=== PATIENT | male | born 1940 | race Caucasian/White ===

== ENCOUNTER 2017-03-07 08:21 | Outpatient (CLI) | payer OTHER ==
[~2017-03-07 08:21] MED LIST: AMIODARONE HCL200 MG PO; CLONAZEPAM0.5 MG PO; DOXYCYCLINE HY100 M2; FUROSEMIDE10 MG/1 M1 PO; LIPITOR20 MG; LIPITOR40 MG PO; LOPRESSOR25 MG; METOPROLOL TART50 MG PO; XARELTO20 MG PO
== END 2017-03-07 12:02 | disposition home or self-care (01) ==
LOC: NUCLEAR 08:21
DX: I48.0 Paroxysmal atrial fibrillation (principal)

== ENCOUNTER → 2017-04-08 06:26 | Outpatient (CLI) | payer OTHER | END | disposition home or self-care (01) | LOC: LAB 06:26 | DX: I11.9 Hypertensive heart disease without heart failure (principal); E78.2 Mixed hyperlipidemia ==

== ENCOUNTER 2017-05-26 07:21 | Outpatient (CLI) | payer OTHER | END 2017-05-26 07:33 | disposition home or self-care (01) | LOC: LAB 07:21 | DX: E11.65 Type 2 diabetes mellitus with hyperglycemia (principal); E03.8 Other specified hypothyroidism; E78.2 Mixed hyperlipidemia; N40.1 Benign prostatic hyperplasia with lower urinary tract symptoms ==

== ENCOUNTER 2017-07-01 06:33 | Outpatient (CLI) | payer OTHER | END 2017-07-01 06:46 | disposition home or self-care (01) | LOC: LAB 06:33 | DX: E03.8 Other specified hypothyroidism (principal); E11.9 Type 2 diabetes mellitus without complications; I11.9 Hypertensive heart disease without heart failure; I48.1 Persistent atrial fibrillation ==

== ENCOUNTER 2017-07-01 08:08 | Outpatient (CLI) | payer OTHER | END 2017-07-01 08:18 | disposition home or self-care (01) | LOC: RAD 08:08 | DX: E03.8 Other specified hypothyroidism (principal); E04.1 Nontoxic single thyroid nodule ==

== ENCOUNTER 2017-07-31 10:03 | Outpatient (CLI) | payer OTHER | END 2017-07-31 10:08 | disposition home or self-care (01) | LOC: RAD 10:03 | DX: J45.998 Other asthma (principal) ==

== ENCOUNTER → 2017-08-01 06:57 | Outpatient (CLI) | payer OTHER | END | disposition home or self-care (01) | LOC: LAB 06:57 | DX: E11.65 Type 2 diabetes mellitus with hyperglycemia (principal); D68.8 Other specified coagulation defects; D64.89 Other specified anemias; I50.41 Acute combined systolic (congestive) and diastolic (congestive) heart failure ==

== ENCOUNTER 2017-08-20 09:07 | Outpatient (CLI) | payer OTHER | END 2017-08-20 15:58 | disposition home or self-care (01) | LOC: TOM 09:07 | DX: J84.10 Pulmonary fibrosis, unspecified (principal) | CPT/HCPCS: 71260; Q9965 ==

== ENCOUNTER → 2017-09-22 07:30 | Outpatient (CLI) | payer OTHER | END | disposition home or self-care (01) | LOC: RAD 07:30 | DX: E11.65 Type 2 diabetes mellitus with hyperglycemia (principal); E03.8 Other specified hypothyroidism; I50.41 Acute combined systolic (congestive) and diastolic (congestive) heart failure; J45.998 Other asthma ==

== ENCOUNTER → 2017-10-05 | Emergency (ER) | payer OTHER | END | disposition left against medical advice (07) | LOC: ER 12:36 | DX: Z53.20 Procedure and treatment not carried out because of patient's decision for unspecified reasons (principal) ==

== ENCOUNTER 2017-11-10 07:40 | Outpatient (CLI) | payer OTHER | END 2017-11-10 07:51 | disposition home or self-care (01) | LOC: LAB 07:40 | DX: I50.22 Chronic systolic (congestive) heart failure (principal); I10 Essential (primary) hypertension; N18.2 Chronic kidney disease, stage 2 (mild) ==

== ENCOUNTER 2017-12-19 09:39 | Outpatient (CLI) | payer OTHER | END 2017-12-19 09:43 | disposition home or self-care (01) | LOC: LAB 09:39 | DX: D64.89 Other specified anemias (principal); N39.0 Urinary tract infection, site not specified; R10.84 Generalized abdominal pain; E03.8 Other specified hypothyroidism; E78.4 Other hyperlipidemia; E11.9 Type 2 diabetes mellitus without complications; R73.09 Other abnormal glucose; I50.22 Chronic systolic (congestive) heart failure; Z13.6 Encounter for screening for cardiovascular disorders ==

== ENCOUNTER 2018-01-08 13:40 | Outpatient (CLI) | payer OTHER | END 2018-01-08 13:56 | disposition home or self-care (01) | LOC: NUCLEAR 13:40 | DX: I42.8 Other cardiomyopathies (principal) | CPT/HCPCS: 78472; 78496; A9560 ==

== ENCOUNTER 2018-01-22 04:54 | Inpatient (IN) | payer OTHER ==
[~2018-01-22] VITALS: Ht 170.2 cm; Wt 90.7 kg
== END 2018-01-25 16:31 | disposition home or self-care (01) | DRG 308 ==
LOC: ER 04:54 → ICU-2 18:38 → ICU 18:38 → MEDJ 01-24 18:28 → MEDI 01-24 18:28 → MEDJ 01-24 18:28
PROC: 4A033R1 Measurement of Arterial Saturation, Peripheral, Percutaneous Approach (ICD-10-PCS; principal; 2018-01-22)
PROC: 4A12X4Z Monitoring of Cardiac Electrical Activity, External Approach (ICD-10-PCS; 2018-01-24)
DX: I48.0 Paroxysmal atrial fibrillation (principal); I50.33 Acute on chronic diastolic (congestive) heart failure; J91.8 Pleural effusion in other conditions classified elsewhere; I13.0 Hypertensive heart and chronic kidney disease with heart failure and stage 1 through stage 4 chronic kidney disease, or unspecified chronic kidney disease; I48.3 Typical atrial flutter; N18.3 Chronic kidney disease, stage 3 (moderate); E78.49 Other hyperlipidemia

== ENCOUNTER 2018-06-17 18:28 | Emergency (ER) | payer OTHER ==
[~2018-06-17] VITALS: Ht 170.2 cm; Wt 90.7 kg
== END 2018-06-17 21:52 | disposition home or self-care (01) ==
LOC: ER 18:28
DX: J11.1 Influenza due to unidentified influenza virus with other respiratory manifestations (principal)

== ENCOUNTER → 2018-08-28 06:28 | Outpatient (CLI) | payer OTHER | END | disposition home or self-care (01) | LOC: LAB 06:28 | DX: I11.9 Hypertensive heart disease without heart failure (principal); E78.2 Mixed hyperlipidemia ==

== ENCOUNTER 2018-09-11 06:58 | Outpatient (CLI) | payer OTHER | END 2018-09-11 07:10 | disposition home or self-care (01) | LOC: LAB 06:58 | DX: J45.998 Other asthma (principal); I50.21 Acute systolic (congestive) heart failure; E03.8 Other specified hypothyroidism; Z45.02 Encounter for adjustment and management of automatic implantable cardiac defibrillator; Z95.810 Presence of automatic (implantable) cardiac defibrillator ==

== ENCOUNTER 2018-09-23 06:18 | Outpatient (CLI) | payer OTHER | END 2018-09-23 06:24 | disposition home or self-care (01) | LOC: LAB 06:18 | DX: E11.21 Type 2 diabetes mellitus with diabetic nephropathy (principal); E11.8 Type 2 diabetes mellitus with unspecified complications ==

== ENCOUNTER 2018-12-22 06:20 | Outpatient (CLI) | payer OTHER | END 2018-12-22 15:09 | disposition home or self-care (01) | LOC: LAB 06:20 | DX: N39.0 Urinary tract infection, site not specified (principal); E11.65 Type 2 diabetes mellitus with hyperglycemia; D64.89 Other specified anemias; E78.2 Mixed hyperlipidemia; N40.1 Benign prostatic hyperplasia with lower urinary tract symptoms ==

== ENCOUNTER 2018-12-23 08:04 | Outpatient (CLI) | payer OTHER | END 2018-12-23 08:07 | disposition home or self-care (01) | LOC: RX STUDY 08:04 | DX: R13.19 Other dysphagia (principal); K00-K95 Diseases of the digestive system ==

== ENCOUNTER 2019-02-23 11:22 | Inpatient (IN) | payer OTHER ==
[~2019-02-23] VITALS: Ht 170.2 cm; Wt 90.7 kg
--- NOTE | 2019-02-23 12:00 | NUR ---
PACIENTE ALERTA Y ORIENTADO EN REN CLAU ESFERAS, REFIERE DIFICULTAD RESPIRATORIA DESDE HACE APROX DOS SOLOMON. PACIENTE MICKEY REFERIDO MEDICO DE FRANCISCO DE DR Sage FAM POR R/O CHF. PACIENTE NO SE OBSERVA CON DIFICULTAD PARA RESPIRAR, REFIERE FATIGA AL CAMINAR, EXTREMIDADES INFERIORES LIBRES DE EDEMA.
--- NOTE | 2019-02-23 12:32 | NUR ---
PT EVALUADO POR DR GRAY QUIEN [place]. SE ORIENTA A PT SOBRE EL MISMO, REFIERE ENTENDER. SE LE COLECTAN MUESTRAS, SE CANALIZA Y SE LE ADMINISTRAN MEDICAMENTOS OLMAN PRESCRITOS BAJO MEDIDAS ASEPTICAS PT TOLERA. SE MANTIENE CONECTADO A MONITOR CARDIACO Y OXIMETRIA DE PULSO CONTINUA EN CAMA # 16 CPU/.
--- NOTE | 2019-02-23 15:37 | NUR ---
SE RECIBE PTE MASCULINO DE 78 YRS ALERTA CONCIENTE Y TRANQUILO EN LA UNIDADA DE CHEST PAIN. PTE CONCNETADO A MONITOR CARDIACO Y OXIMENTRIA,. SE LE BLADIMIR S/V LA CUAL SE DOCUMENTA. SE ,MANTIENE MARCELINA DE DOLOR AL MOMENTO. SE LE OBSERVA H/L EN MANO DERECHA CON ANGIO #20 MARCELINA DE EDEMA . SE MANTIENE EN ESPERA DE MEDICO ZEKE SARWAT Y SE OBSERVA POR CAMBIOS.
--- NOTE | 2019-02-23 22:17 | NUR ---
SE LE COMIEZA MEDICAMENTOS OLMAN ORENADOS POR EL ZEKE PARKER Y SE COMIENZA EN TRIDIL 50/250 A 3 ML HR .SE OBSERVA POR CAMBIOS .
--- NOTE | 2019-02-23 23:21 | NUR ---
TAILER OUT RECIBE PTE ALERTA Y ORIENTADO X3 EL CUAL SE OBSERVA EN ERNIE CON BARANDAS ELEVADAS AL MOMENTO. PTE SE OBSERVA CONECTADO A MONITOR CARDIACO CON OXIMETRAIDE PULSO CONTINUA. PTE CON DRPI DE TRIDIL 50M/250ML BAJANDO A 2ML/HR. PTE SE OBSERVA CON CANALIZACION PATENTE MARCELINA DE EDEMA Y ENROJECIMIENTO. SE ORIENTA A PTE SOBRE TX MEDICO ARLINE REFIERE ENTENDER. SE MIDEN S/V APTE Y SE DOCUMENTAN EN SISTEMA. PTE CON CN A 2 LTS COLOCADA. PTE CON URINAL AL ALCANZE. PTE CON MUESTRAS DE LAB PENDIENJTE EN LA MANANA Y EN ESPERA DE CONSULTA CON MEDICINA INTERNA. PTE SE CONTINUA MONITORIANDO POR CAMBIOS.
--- NOTE | 2019-02-24 08:07 | NUR ---
SE RECIBE PTE DEL TURNO ANTERIOR EN ERNIE CON BARANDAS ELEVADAS CON IVFS PATENTE, MARCELINA DE EDEMA Y ERITEMA. ALERTA, ORIENTADO POR CLAU. REFIERE SENTIRSE MEJOR. CONECTADO A MONITOR CARDIACO. SE MANTIENE EN OBSERVACION Y PENDIENTE A CONSULTA CON .
--- NOTE | 2019-02-24 10:54 | NUR ---
SE LE DA ADAM Y SE MIDE S/V SE REPORTAN . SE MANTIENE EN OBSERVACION.
--- NOTE | 2019-02-24 13:07 | NUR ---
PTE INGIERE REN ALIMENTOS LA CUAL TOLERA. NO PRESENTA DIFICULTAD AL RESPIRAR SATURANDO 99%. SE MANTIENE EN OBSERVACION Y PENDIENTE A CONSULTA CON
--- NOTE | 2019-02-24 15:12 | NUR ---
SE RECIBE PACIENTE EN AREA DE CHEST PAIN ERNIE # 16. SE OFRECE ADAM PARA EVALUAR CONDICION Y ORIENTAR DE CONTINUIDAD DE TRATAMIENTO EN TURNO 06/01. SE OBSERVA ALERTA,ACTIVO Y ORIENTADO.CONECTADO A MONITOR CARDIACO CON SATUROME- TRO Y CANULA NASAL A 3LITROS.H/L PATENTE EN MANO DERECHA ANGIO #18 AREA MARCELINA DE EDEMA Y/O ERITEMA.SE MIDEN Y DOCUMENTAN S/V.BARANDAS ELEVADAS POR STRAUSS SEGURI- DAD.SE MONITOREA EN TURNO POR CAMBIOS SIGNIFICATIVOS.
== END 2019-02-26 14:46 | disposition home or self-care (01) | DRG 291 ==
LOC: ER 11:22 → SURH 02-24 18:42 → SEC-K 02-24 18:42 → SURH 02-24 20:20
PROVIDERS: ADMIT Specialist
PROC: B246ZZZ Ultrasonography of Right and Left Heart (ICD-10-PCS; principal; 2019-02-24)
PROC: 3E0F7GC Introduction of Other Therapeutic Substance into Respiratory Tract, Via Natural or Artificial Opening (ICD-10-PCS; 2019-02-24)
PROC: 4A12X4Z Monitoring of Cardiac Electrical Activity, External Approach (ICD-10-PCS; 2019-02-25)
DX: I13.0 Hypertensive heart and chronic kidney disease with heart failure and stage 1 through stage 4 chronic kidney disease, or unspecified chronic kidney disease (principal); I50.43 Acute on chronic combined systolic (congestive) and diastolic (congestive) heart failure; D68.318 Other hemorrhagic disorder due to intrinsic circulating anticoagulants, antibodies, or inhibitors; N18.3 Chronic kidney disease, stage 3 (moderate); I08.0 Rheumatic disorders of both mitral and aortic valves; I48.0 Paroxysmal atrial fibrillation; Z79.01 Long term (current) use of anticoagulants; Z95.810 Presence of automatic (implantable) cardiac defibrillator

== ENCOUNTER 2019-06-08 07:42 | Outpatient (CLI) | payer OTHER | END 2019-06-08 15:00 | disposition home or self-care (01) | LOC: LAB 07:42 | DX: E11.65 Type 2 diabetes mellitus with hyperglycemia (principal); D64.89 Other specified anemias; N39.0 Urinary tract infection, site not specified; Z12.11 Encounter for screening for malignant neoplasm of colon; E78.2 Mixed hyperlipidemia; E03.8 Other specified hypothyroidism ==

== ENCOUNTER 2019-10-28 08:07 | Outpatient (CLI) | payer OTHER | END 2019-10-28 08:12 | disposition home or self-care (01) | LOC: LAB 08:07 | PROVIDERS: ATTEND Internal Medicine | DX: I48.20 Chronic atrial fibrillation, unspecified (principal) ==

== ENCOUNTER 2019-11-26 08:41 | Outpatient (CLI) | payer OTHER | END 2019-11-26 08:47 | disposition home or self-care (01) | LOC: LAB 08:41 | DX: E11.21 Type 2 diabetes mellitus with diabetic nephropathy (principal) ==

== ENCOUNTER 2020-05-24 05:36 | Emergency (ER) | payer OTHER ==
[~2020-05-24] VITALS: Ht 170.2 cm; Wt 90.7 kg
[2020-05-24] MEDS ORDERED: ANUSOL-HC30 G2 TOP (10:31)
== END 2020-05-24 10:44 | disposition home or self-care (01) ==
LOC: ER 05:36
DX: K64.4 Residual hemorrhoidal skin tags (principal)

== ENCOUNTER 2020-06-29 13:33 | Emergency (ER) | payer OTHER ==
[~2020-06-29] VITALS: Ht 170.2 cm; Wt 94.3 kg
[~2020-06-29 13:33] MED LIST changes: +ANUSOL-HC30 G2 TOP
[2020-06-29] MEDS ORDERED: COZAAR25 MG (15:33)
[2020-06-29] MEDS ORDERED: XARELTO20 MG (15:33)
[2020-06-29] MEDS ORDERED: LASIX20 MG (15:33)
[2020-06-29] MEDS ORDERED: LANOXIN125 MCG (15:33)
[2020-06-29] MEDS ORDERED: PROCTOZONE-HC30 GM (15:34)
== END 2020-06-30 14:16 | disposition home or self-care (01) ==
LOC: ER 13:33
DX: I13.0 Hypertensive heart and chronic kidney disease with heart failure and stage 1 through stage 4 chronic kidney disease, or unspecified chronic kidney disease (principal); I50.9 Heart failure, unspecified; N18.30 Chronic kidney disease, stage 3 unspecified; I42.0 Dilated cardiomyopathy; Z03.818 Encounter for observation for suspected exposure to other biological agents ruled out; R06.02 Shortness of breath; Z95.810 Presence of automatic (implantable) cardiac defibrillator

== ENCOUNTER 2020-07-03 06:52 | Outpatient (CLI) | payer OTHER ==
[~2020-07-03 06:52] MED LIST changes: +COZAAR25 MG; +LANOXIN125 MCG; +LASIX20 MG; +PROCTOZONE-HC30 GM; +XARELTO20 MG
== END 2020-07-03 07:22 | disposition home or self-care (01) ==
LOC: LAB 06:52
DX: I50.89 Other heart failure (principal); N18.30 Chronic kidney disease, stage 3 unspecified

== ENCOUNTER 2020-07-21 08:04 | Inpatient (IN) | payer OTHER ==
[~2020-07-21] VITALS: Ht 170.2 cm; Wt 90.7 kg
[2020-07-21] MEDS ORDERED: TOPROL XL25 M1 PO (08:18)
[2020-07-21] MEDS ORDERED: LOPRESSOR25 MG (16:47)
== END 2020-07-25 16:25 | disposition home or self-care (01) | DRG 292 ==
LOC: ER 08:04 → MEDJ 14:51 → SEC-K 14:51 → MEDJ 16:47
PROVIDERS: ADMIT Specialist; ATTEND Specialist
PROC: 3E0F7SF Introduction of Other Gas into Respiratory Tract, Via Natural or Artificial Opening (ICD-10-PCS; 2020-07-21)
PROC: 4A12X4Z Monitoring of Cardiac Electrical Activity, External Approach (ICD-10-PCS; 2020-07-21)
PROC: B24BZZZ Ultrasonography of Heart with Aorta (ICD-10-PCS; principal; 2020-07-22)
DX: I50.23 Acute on chronic systolic (congestive) heart failure (principal); I48.20 Chronic atrial fibrillation, unspecified; I42.0 Dilated cardiomyopathy; I10 Essential (primary) hypertension; R06.02 Shortness of breath; E78.49 Other hyperlipidemia; Z20.822 Contact with and (suspected) exposure to COVID-19; Z95.810 Presence of automatic (implantable) cardiac defibrillator

== ENCOUNTER → 2020-07-31 06:18 | Outpatient (CLI) | payer OTHER ==
[~2020-07-31 06:18] MED LIST changes: +ATORVASTATIN CA10 MG; +ATORVASTATIN CA10 MG PO; +DIGOXIN125 MCG; +FAMOTIDINE20 MG PO; +FUROSEMIDE40 MG PO; +HYDRALAZINE HCL10 MG PO; +ISOSORBIDE DINIT5 MG; +LOSARTAN POTASS25 MG; +METOPROLOL SUC100 MG; +TOPROL XL25 M1 PO
== END | disposition home or self-care (01) ==
LOC: LAB 06:18
PROVIDERS: ATTEND Specialist
DX: E11.65 Type 2 diabetes mellitus with hyperglycemia (principal); I50.9 Heart failure, unspecified

== ENCOUNTER 2020-08-07 07:48 | Emergency (ER) | payer OTHER ==
[~2020-08-07] VITALS: Ht 170.2 cm; Wt 90.7 kg
[~2020-08-07 07:48] MED LIST changes: -ATORVASTATIN CA10 MG; -ATORVASTATIN CA10 MG PO; -DIGOXIN125 MCG; -FAMOTIDINE20 MG PO; -FUROSEMIDE40 MG PO; -HYDRALAZINE HCL10 MG PO; -ISOSORBIDE DINIT5 MG; -LOSARTAN POTASS25 MG; -METOPROLOL SUC100 MG
[2020-08-07] MEDS ORDERED: ATORVASTATIN CA10 MG PO (08:00)
== END 2020-08-07 19:45 | disposition home or self-care (01) ==
LOC: ER 07:48
DX: I48.91 Unspecified atrial fibrillation (principal); R00.2 Palpitations; R06.02 Shortness of breath

== ENCOUNTER 2020-08-12 18:03 | Inpatient (IN) | payer OTHER ==
[~2020-08-12] VITALS: Ht 170.2 cm; Wt 90.7 kg
[~2020-08-12 18:03] MED LIST changes: +ATORVASTATIN CA10 MG PO
--- NOTE | 2020-08-12 18:25 | NUR ---
PACIENTE ALERTA Y ORIENTADO POR CLAU. REFIERE INFLAMACION EN PIERNAS Y DIF RESPIRATORIA HACEN MAS DE 2 SEMANAS. SE MIDEN S/V LOS MISMOS ESTAN EN PARAMETROS NORMALES. SATURANDO 96%, REFIERE LA DIF PARA RESPIRAR ES AL ACOSTARSE.
--- NOTE | 2020-08-12 19:28 | NUR ---
PTE EVALUADO POR EL DR GABRIELA QUIEN [place]. MS A VALDES ORIENTA SOBRE EL TX [place], LO CUAL REFIERE ENTENDER, REALIZA PRUEBAS DE LABORATORIO Y ADMINISTRA MEDICAMENTO OLMAN ORDEN MEDICA Y SIGUIENDO MEDIDAS ASEPTICAS.
--- NOTE | 2020-08-12 19:29 | NUR ---
ALCIDES X NOTIFICADOS A PERSONAL DE TURNO.
--- NOTE | 2020-08-12 21:52 | NUR ---
PTE CON ORDEN PARA SER UBICADO EN AREA DE CRITICO. SE ORIENTA A PTE SOBRE UNIDAD Y NORMAS, LO CUAL REFIERE ENTENDER. SE TRANSFIERE PTE AL AREA DE CRITICO UBICADO EN CAMA #2, CONECTADO A MONITOR CARDIACO Y OXIMETRIA DE PULSO. SE ADMINISTRA MEDICAMENTO OLMAN ORDEN MEDICA AL MOMENTO CON DRIP DE TRIDIL 50MG/250ML @3ML/HR. SE ENTREGA PTE A MS Briana SPARKS.
--- NOTE | 2020-08-12 22:11 | NUR ---
SE RECIBE PACIENTE EN AREA DE ICU #2 POR TAMIE BUTT, ESTA CONECTA A MONITOR CARDIACO CON SATUROMETRO.PACIENTE ALERTA Y ORIENTADO POR CLAU.MARCELINA DE DUDAS. IVF'S PATENTE A TRAVEZ DE ANGIO #20 BRAZO DERECHO,AREA MARCELINA DE EDEMA Y/O ERITEMA BAJANDO TRIDIL A 3MLS/HR.ORINANDO DE FORMA ESPONTANEA.BARANDAS ELEVADAS POR STRAUSS SEGURIDAD. SE MONITOREA POR CAMBIOS SIGNIFICATIVOS.
--- NOTE | 2020-08-12 23:59 | NUR ---
SE RECIBE PACIENTE MASCULINO ALERTA Y ORIENTADO EN LAS CLAU ESFERAS. SE ONSERVA PACIENTE CONECTADO A MONITOR CARDIACO, OXIMETRIA DE PULSO, CANULA NASAL, TRIDIL 50MG/250ML AT 3ML/HR. AL MOMENTO PACIENTE PENDIENTE A CONSULTA CON DR CODIE ROSE. SE MIDEN SIGNOS VITALES DE PACIENTE Y SE MANTIENE EN OBSERVACION.
--- NOTE | 2020-08-13 07:48 | NUR ---
SE RECIBE PACIENTE DEL TURNO ANTERIOR. PACIENTE ALERTA Y ORIENTADO EN LAS CLAU ESFERAS. SE ENCUENTRA EN POSICION SEMISENTADO Y BARANDAS ELEVADAS. PACIENTE CONECTADO A MONITOR CARDIACO Y A OXIMETRIA. PACIENTE CON CANULA NASAL A 3 LT Y SATURANDO 98% AL MOMENTO. SE OBSERVAN RITMOS CARDIACOS IRREGULARES EN EL MONITOR. PACIENTE CON TERAPIA INTRAVENOSA DE TRIDIL BAJANDO A 1 ML/HR AL MOMENTO. SE ESPERA POR CONSULTA DE MEDICO PARA CONTINUIDAD DE TRATAMIENTO AL PACIENTE. SE MANTIENE A PACIENTE BAJO OBSERVACION POR CAMBIOS.
[2020-08-14] MEDS ORDERED: LOPRESSOR25 MG (08:01)
[2020-08-14] MEDS ORDERED: ISOSORBIDE DINIT5 MG (08:01)
[2020-08-14] MEDS ORDERED: METOPROLOL SUC100 MG (08:01)
[2020-08-14] MEDS ORDERED: DIGOXIN125 MCG (08:01)
[2020-08-14] MEDS ORDERED: LOSARTAN POTASS25 MG (08:01)
== END 2020-08-17 15:17 | disposition home or self-care (01) | DRG 292 ==
LOC: ER 18:03 → MEDI 08-13 10:03 → SEC-K 08-13 10:03 → MEDI 08-13 13:16
PROVIDERS: ADMIT Specialist; ATTEND Specialist
PROC: 4A12X4Z Monitoring of Cardiac Electrical Activity, External Approach (ICD-10-PCS; principal; 2020-08-12)
PROC: 3E0F7SF Introduction of Other Gas into Respiratory Tract, Via Natural or Artificial Opening (ICD-10-PCS; 2020-08-13)
DX: I50.23 Acute on chronic systolic (congestive) heart failure (principal); I42.0 Dilated cardiomyopathy; I48.20 Chronic atrial fibrillation, unspecified; I10 Essential (primary) hypertension; E78.49 Other hyperlipidemia; Z20.822 Contact with and (suspected) exposure to COVID-19; Z95.810 Presence of automatic (implantable) cardiac defibrillator

== ENCOUNTER 2020-08-24 22:34 | Inpatient (IN) | payer OTHER ==
[~2020-08-24] VITALS: Ht 170.2 cm; Wt 90.7 kg
[~2020-08-24 22:34] MED LIST changes: +DIGOXIN125 MCG; +ISOSORBIDE DINIT5 MG; +LOSARTAN POTASS25 MG; +METOPROLOL SUC100 MG
[2020-08-24] MEDS ORDERED: FUROSEMIDE40 MG PO (22:54)
[2020-08-24] MEDS ORDERED: FAMOTIDINE20 MG PO (22:54)
[2020-08-24] MEDS ORDERED: HYDRALAZINE HCL10 MG PO (22:55)
[2020-08-31] MEDS ORDERED: ATORVASTATIN CA10 MG (16:28)
[2020-08-31] MEDS ORDERED: ISOSORBIDE DINIT5 MG (16:28)
[2020-08-31] MEDS ORDERED: LOPRESSOR25 MG (16:29)
== END 2020-09-01 14:35 | disposition home or self-care (01) | DRG 292 ==
LOC: ER 22:34 → SEC-K 08-25 16:24 → MEDI 08-25 16:24 → SEC-K 08-25 17:27 → MEDI 08-25 17:56 → MEDJ 08-29 17:24
PROVIDERS: ADMIT Specialist; ATTEND Specialist
PROC: 4A12X4Z Monitoring of Cardiac Electrical Activity, External Approach (ICD-10-PCS; 2020-08-25)
PROC: B24BZZZ Ultrasonography of Heart with Aorta (ICD-10-PCS; 2020-08-25)
PROC: B24BZZ4 Ultrasonography of Heart with Aorta, Transesophageal (ICD-10-PCS; principal; 2020-08-31)
DX: I13.0 Hypertensive heart and chronic kidney disease with heart failure and stage 1 through stage 4 chronic kidney disease, or unspecified chronic kidney disease (principal); I48.20 Chronic atrial fibrillation, unspecified; I34.0 Nonrheumatic mitral (valve) insufficiency; I42.0 Dilated cardiomyopathy; Z79.01 Long term (current) use of anticoagulants; D64.9 Anemia, unspecified; I25.5 Ischemic cardiomyopathy; Z95.810 Presence of automatic (implantable) cardiac defibrillator; I11.0 Hypertensive heart disease with heart failure; I50.9 Heart failure, unspecified; N18.31 Chronic kidney disease, stage 3a; Z91.14 Patient's other noncompliance with medication regimen

== ENCOUNTER 2020-11-03 13:52 | Inpatient (IN) | payer OTHER ==
[~2020-11-03] VITALS: Ht 170.2 cm; Wt 90.7 kg
[~2020-11-03 13:52] MED LIST changes: +ATORVASTATIN CA10 MG; +FAMOTIDINE20 MG PO; +FUROSEMIDE40 MG PO; +HYDRALAZINE HCL10 MG PO
[2020-11-08] MEDS ORDERED: CANDESARTAN CILE8 M1 (11:36)
[2020-11-08] MEDS ORDERED: ISOSORBIDE MONO30 M2 (11:36)
[2020-11-08] MEDS ORDERED: RESTORIL15 MG (11:36)
== END 2020-11-08 13:52 | disposition home or self-care (01) | DRG 728 ==
LOC: ER 13:52 → MEDI 11-04 15:42
PROVIDERS: ADMIT Specialist; ATTEND Specialist
PROC: BW21ZZZ Computerized Tomography (CT Scan) of Abdomen and Pelvis (ICD-10-PCS; principal; 2020-11-04)
PROC: BV44ZZZ Ultrasonography of Scrotum (ICD-10-PCS; 2020-11-04)
DX: N45.1 Epididymitis (principal); I42.0 Dilated cardiomyopathy; I48.20 Chronic atrial fibrillation, unspecified; N43.2 Other hydrocele; Z20.822 Contact with and (suspected) exposure to COVID-19; Z95.810 Presence of automatic (implantable) cardiac defibrillator; N50.3 Cyst of epididymis; I12.9 Hypertensive chronic kidney disease with stage 1 through stage 4 chronic kidney disease, or unspecified chronic kidney disease; N18.9 Chronic kidney disease, unspecified

== ENCOUNTER 2020-11-17 06:51 | Outpatient (CLI) | payer OTHER ==
[~2020-11-17 06:51] MED LIST changes: +CANDESARTAN CILE8 M1; +ISOSORBIDE MONO30 M2; +RESTORIL15 MG
== END 2020-11-17 06:53 | disposition home or self-care (01) ==
LOC: LAB 06:51
PROVIDERS: ATTEND Specialist
DX: D64.89 Other specified anemias (principal); I50.89 Other heart failure; E11.65 Type 2 diabetes mellitus with hyperglycemia

== ENCOUNTER 2021-01-18 09:37 | Outpatient (CLI) | payer OTHER | END 2021-01-18 09:45 | disposition home or self-care (01) | LOC: TOM 09:37 | PROVIDERS: ATTEND Psychiatry & Neurology Neurology | DX: M54.2 Cervicalgia (principal); G44.219 Episodic tension-type headache, not intractable ==

== ENCOUNTER 2021-03-23 23:36 | Emergency (ER) | payer OTHER ==
[~2021-03-23] VITALS: Ht 170.2 cm; Wt 81.6 kg
[2021-03-24] MEDS ORDERED: VITAMIN C WIT1000 MG PO (03:55)
[2021-03-24] MEDS ORDERED: ACETAMINOPHEN650 M2 PO (03:55)
[2021-03-24] MEDS ORDERED: MUCINEX DM ER1 EACH PO (03:55)
[2021-03-24] MEDS ORDERED: MELATONIN5 M1 PO (03:55)
== END 2021-03-24 04:05 | disposition home or self-care (01) ==
LOC: ER 23:36
DX: U07.1 COVID-19 (principal); I50.9 Heart failure, unspecified; R53.1 Weakness; R53.83 Other fatigue; N18.9 Chronic kidney disease, unspecified

== ENCOUNTER 2021-04-07 14:37 | Emergency (ER) | payer OTHER ==
[~2021-04-07] VITALS: Ht 170.2 cm; Wt 81.6 kg
[~2021-04-07 14:37] MED LIST changes: +ACETAMINOPHEN650 M2 PO; +MELATONIN5 M1 PO; +MUCINEX DM ER1 EACH PO; +VITAMIN C WIT1000 MG PO
== END 2021-04-07 19:44 | disposition home or self-care (01) ==
LOC: ER 14:37
DX: K64.5 Perianal venous thrombosis (principal)

== ENCOUNTER 2021-04-09 16:09 | Emergency (ER) | payer OTHER ==
[~2021-04-09] VITALS: Ht 170.2 cm; Wt 63.5 kg
[2021-04-09] MEDS ORDERED: TAMS0.4C PO (20:20)
[2021-04-09] MEDS ORDERED: CEFDINIR300 MG PO (20:20)
== END 2021-04-09 21:12 | disposition home or self-care (01) ==
LOC: ER 16:09
DX: N39.0 Urinary tract infection, site not specified (principal); B96.1 Klebsiella pneumoniae [K. pneumoniae] as the cause of diseases classified elsewhere; T83.018A Breakdown (mechanical) of other urinary catheter, initial encounter

== ENCOUNTER 2021-04-20 00:42 | Emergency (ER) | payer OTHER ==
[~2021-04-20] VITALS: Ht 170.2 cm; Wt 81.6 kg
[~2021-04-20 00:42] MED LIST changes: +CEFDINIR300 MG PO; +TAMS0.4C PO
== END 2021-04-20 13:10 | disposition home or self-care (01) ==
LOC: ER 00:42
DX: I11.0 Hypertensive heart disease with heart failure (principal); I50.9 Heart failure, unspecified; I48.91 Unspecified atrial fibrillation; I42.0 Dilated cardiomyopathy; D64.89 Other specified anemias; Z03.818 Encounter for observation for suspected exposure to other biological agents ruled out; R06.02 Shortness of breath; Z95.810 Presence of automatic (implantable) cardiac defibrillator

== ENCOUNTER 2021-04-21 10:03 | Outpatient (CLI) | payer OTHER | END 2021-04-21 10:08 | disposition home or self-care (01) | LOC: LAB 10:03 | PROVIDERS: ATTEND Specialist | DX: E11.65 Type 2 diabetes mellitus with hyperglycemia (principal) ==

== ENCOUNTER 2021-04-24 13:18 | Outpatient (CLI) | payer OTHER | END 2021-04-24 13:23 | disposition home or self-care (01) | LOC: LAB 13:18 | PROVIDERS: ATTEND Urology | DX: N39.0 Urinary tract infection, site not specified (principal) ==

== ENCOUNTER 2021-05-02 20:39 | Emergency (ER) | payer OTHER ==
[~2021-05-02] VITALS: Ht 170.2 cm; Wt 81.6 kg
[2021-05-02] MEDS ORDERED: HYDRALAZINE HCL25 MG (20:55)
[2021-05-02] MEDS ORDERED: LASIX40 MG (20:56)
[2021-05-02] MEDS ORDERED: CHILDREN'S ASPI81 MG (20:57)
== END 2021-05-02 22:34 | disposition home or self-care (01) ==
LOC: ER 20:39
DX: R60.0 Localized edema (principal); I10 Essential (primary) hypertension; I95.9 Hypotension, unspecified; R06.02 Shortness of breath

== ENCOUNTER 2021-05-18 11:33 | Outpatient (CLI) | payer OTHER ==
[~2021-05-18 11:33] MED LIST changes: +CHILDREN'S ASPI81 MG; +HYDRALAZINE HCL25 MG; +LASIX40 MG
== END 2021-05-18 14:22 | disposition home or self-care (01) ==
LOC: LAB 11:33
DX: I35.0 Nonrheumatic aortic (valve) stenosis (principal); I10 Essential (primary) hypertension

== ENCOUNTER 2021-06-14 07:20 | Outpatient (CLI) | payer OTHER | END 2021-06-14 07:25 | disposition home or self-care (01) | LOC: LAB 07:20 | DX: I35.0 Nonrheumatic aortic (valve) stenosis (principal); I10 Essential (primary) hypertension ==

== ENCOUNTER 2021-07-30 08:43 | Outpatient (CLI) | payer OTHER | END 2021-07-30 08:46 | disposition home or self-care (01) | LOC: LAB 08:43 | DX: Z11.52 Encounter for screening for COVID-19 (principal); Z20.822 Contact with and (suspected) exposure to COVID-19; I34.0 Nonrheumatic mitral (valve) insufficiency ==

== ENCOUNTER 2021-08-13 09:05 | Outpatient (CLI) | payer OTHER | END 2021-08-13 09:10 | disposition home or self-care (01) | LOC: RX STUDY 09:05 | DX: R13.10 Dysphagia, unspecified (principal) ==

== ENCOUNTER 2021-10-09 00:10 | Emergency (ER) | payer OTHER ==
[~2021-10-09] VITALS: Ht 170.2 cm; Wt 81.6 kg
[2021-10-09] MEDS ORDERED: CEFDINIR300 MG (00:17)
[2021-10-09] MEDS ORDERED: ADULT ASPIRIN81 MG (00:17)
[2021-10-09] MEDS ORDERED: FUROSEMIDE40 MG (00:17)
[2021-10-09] MEDS ORDERED: TAMSULOSIN HCL0.4 MG (00:17)
[2021-10-09] MEDS ORDERED: CLARITHROMYCIN500 MG (00:17)
[2021-10-09] MEDS ORDERED: RESTORIL15 MG (00:18)
[2021-10-09] MEDS ORDERED: FUROSEMIDE20 MG (00:18)
[2021-10-09] MEDS ORDERED: FAMOTIDINE20 MG (00:18)
[2021-10-09] MEDS ORDERED: XARELTO20 M1 (00:18)
[2021-10-09] MEDS ORDERED: METOPROLOL TART50 MG (00:18)
[2021-10-09] MEDS ORDERED: LOPRESSOR25 MG (00:18)
[2021-10-09] MEDS ORDERED: ISOSORBIDE MONO30 M2 (00:18)
[2021-10-09] MEDS ORDERED: DIGOXIN125 MCG (00:19)
[2021-10-09] MEDS ORDERED: FINASTERIDE5 MG (00:19)
[2021-10-09] MEDS ORDERED: ATORVASTATIN CA10 MG (00:19)
[2021-10-09] MEDS ORDERED: LOSARTAN POTASS25 MG (00:19)
== END 2021-10-09 03:32 | disposition left against medical advice (07) ==
LOC: ER 00:10
DX: M54.2 Cervicalgia (principal)

== ENCOUNTER 2021-11-05 06:40 | Outpatient (CLI) | payer OTHER ==
[~2021-11-05 06:40] MED LIST changes: +ADULT ASPIRIN81 MG; +CEFDINIR300 MG; +CLARITHROMYCIN500 MG; +FAMOTIDINE20 MG; +FINASTERIDE5 MG; +FUROSEMIDE20 MG; +FUROSEMIDE40 MG; +METOPROLOL TART50 MG; +TAMSULOSIN HCL0.4 MG; +XARELTO20 M1
== END 2021-11-05 06:43 | disposition home or self-care (01) ==
LOC: LAB 06:40
DX: Z03.818 Encounter for observation for suspected exposure to other biological agents ruled out (principal)

== ENCOUNTER → 2022-02-22 | Emergency (ER) | payer OTHER ==
[~2022-02-22] VITALS: Ht 170.2 cm; Wt 79.8 kg
[~2022-02-22] MED LIST changes: +BUTALB-ASPIRIN1 EACH PO; +PANTOPRAZOLE SO20 MG PO; +PLAVIX75 MG PO
== END | disposition home or self-care (01) ==
LOC: ER 07:37
DX: S09.90XA Unspecified injury of head, initial encounter (principal); W06.XXXA Fall from bed, initial encounter; Y93.9 Activity, unspecified; Y92.013 Bedroom of single-family (private) house as the place of occurrence of the external cause; R51.9 Headache, unspecified; Z86.79 Personal history of other diseases of the circulatory system

== ENCOUNTER 2022-03-06 23:44 | Emergency (ER) | payer OTHER ==
[~2022-03-06] VITALS: Ht 170.2 cm; Wt 72.6 kg
== END 2022-03-07 11:16 | disposition home or self-care (01) ==
LOC: ER 23:44
DX: K40.90 Unilateral inguinal hernia, without obstruction or gangrene, not specified as recurrent (principal); K57.30 Diverticulosis of large intestine without perforation or abscess without bleeding; K59.00 Constipation, unspecified; N40.0 Benign prostatic hyperplasia without lower urinary tract symptoms; I10 Essential (primary) hypertension

== ENCOUNTER 2022-05-24 03:27 | Emergency (ER) | payer OTHER ==
[~2022-05-24] VITALS: Ht 170.2 cm; Wt 77.1 kg
== END 2022-05-25 10:39 | disposition home or self-care (01) ==
LOC: ER 03:27
DX: K40.90 Unilateral inguinal hernia, without obstruction or gangrene, not specified as recurrent (principal); I10 Essential (primary) hypertension; Z20.822 Contact with and (suspected) exposure to COVID-19; I48.20 Chronic atrial fibrillation, unspecified; Z95.811 Presence of heart assist device; Z79.01 Long term (current) use of anticoagulants; Z95.2 Presence of prosthetic heart valve

== ENCOUNTER 2022-05-30 06:37 | Outpatient (CLI) | payer OTHER | END 2022-05-30 06:39 | disposition home or self-care (01) | LOC: LAB 06:37 | PROVIDERS: ATTEND Specialist | DX: E03.8 Other specified hypothyroidism (principal); N39.9 Disorder of urinary system, unspecified; D64.89 Other specified anemias; Z13.220 Encounter for screening for lipoid disorders; E11.69 Type 2 diabetes mellitus with other specified complication; Z12.5 Encounter for screening for malignant neoplasm of prostate; E11.21 Type 2 diabetes mellitus with diabetic nephropathy; I51.7 Cardiomegaly ==

== ENCOUNTER → 2022-07-20 | Emergency (ER) | payer OTHER ==
[~2022-07-20] VITALS: Ht 170.2 cm; Wt 72.6 kg
[~2022-07-20] MED LIST changes: +CANDESARTAN CILE8 M1 PO; +LASIX40 MG PO; +TOPROL XL50 M1 PO
== END | disposition home or self-care (01) ==
LOC: ER 06:37
DX: K29.70 Gastritis, unspecified, without bleeding (principal); R11.10 Vomiting, unspecified

== ENCOUNTER 2022-07-23 09:27 | Emergency (ER) | payer OTHER ==
[~2022-07-23] VITALS: Ht 170.2 cm; Wt 72.6 kg
[2022-07-23] MEDS ORDERED: ANUSOL-HC30 G2 TOP (11:31)
[2022-07-23] MEDS ORDERED: EPSOM SALT PO (11:31)
== END 2022-07-23 11:38 | disposition home or self-care (01) ==
LOC: ER 09:27
DX: K64.8 Other hemorrhoids (principal); E78.00 Pure hypercholesterolemia, unspecified; I10 Essential (primary) hypertension; Z98.890 Other specified postprocedural states

== ENCOUNTER 2022-10-22 06:35 | Outpatient (CLI) | payer OTHER ==
[~2022-10-22 06:35] MED LIST changes: +EPSOM SALT PO
== END 2022-10-22 06:37 | disposition home or self-care (01) ==
LOC: LAB 06:35
PROVIDERS: ATTEND Specialist
DX: D64.89 Other specified anemias (principal); E03.8 Other specified hypothyroidism; E11.69 Type 2 diabetes mellitus with other specified complication; N39.9 Disorder of urinary system, unspecified; E11.21 Type 2 diabetes mellitus with diabetic nephropathy; M00.80 Arthritis due to other bacteria, unspecified joint; Z13.220 Encounter for screening for lipoid disorders

== ENCOUNTER 2022-11-12 07:26 | Outpatient (CLI) | payer OTHER | END 2022-11-12 07:32 | disposition home or self-care (01) | LOC: NUCLEAR 07:26 | PROVIDERS: ATTEND Internal Medicine | DX: I50.9 Heart failure, unspecified (principal); I34.0 Nonrheumatic mitral (valve) insufficiency | CPT/HCPCS: 78452; 93017; 93306; A9500; J0153 ==

== ENCOUNTER → 2023-04-07 08:21 | Outpatient (CLI) | payer OTHER ==
[2023-04-07 09:26] LABS: HEMATOCRIT 40.1 % (39.0-48.0); HEMOGLOBIN 13.4 g/dL (13-16.00); MEAN CELL VOLUME 84.2 fL (80.0-100.00); MEAN CORPUSCULAR HEMOGLOBIN 28.1 pg (27.00-32.0); MEAN CORPUSCULAR HGB CONC 33.4 g/dl (32.0-36.0); PLATELET COUNT 235 K/uL (150-450); RED BLOOD COUNT 4.76 M/uL (4.00-6.00); RED CELL DISTRIBUTION WIDTH 15.1 % (11.5-14.5)
[2023-04-07 09:35] LABS: PH,URINE 5.5 (5.0-8.0); URINE APPEARANCE Cloudy; URINE BILIRRUBIN Negative (NEGATIVE); URINE BLOOD Trace; URINE COLOR Yellow; URINE GLUCOSE Negative (NEGATIVE); URINE LEUKOCYTE Large; URINE NITRATE Negative; URINE PROTEIN 30 (NEGATIVE)
[2023-04-07 09:42] LABS: URINE RBC 6.1 uL (0.0-20.8); URINE WBC 1691.2 uL (0.0-23.2)
[2023-04-07 09:53] LABS: URINE BACTERIA > 9821.5 uL (0.0-1933); URINE EPITHELIAL CELLS 1.3 uL (0.0-38.8)
[2023-04-07 10:05] LABS: ALBUMIN 3.6 gm/dL (3.4-5.0); ALKALINE PHOSPHATASE 109 U/L (50-136); ALT/SGPT 23 U/L (12-78); ANION GAP 6 (10.0-20.0); AST/SGOT 19 U/L (15-37); BILIRUBIN TOTAL 0.85 mg/dL (0.3-1.2); BILIRUBIN,CONJUGATED 0.27 mg/dL (0.0-0.2); BILIRUBIN,UNCONJUGATED 0.58 mg/dL (0.0-0.6); BLOOD UREA NITROGEN 19 mg/dL (7-18); BUN CREA RATIO 12 (7.0-25.0); CALCIUM 8.8 mg/dL (8.5-10.1); CARBON DIOXIDE 29 mEq/L (21-32); CHLORIDE 108 mmol/L (98-107); CHOL HDL RATIO 2.5 (0-5.0); CHOLESTEROL 145 mg/dL (0-200); CREATININE SERUM 1.55 mg/dL (0.70-1.30); FREE TRIODOTIRONINE 2.15 pg/ml (2.18-3.98); GFR 43.36; GLOBULINA 3.4 G/DL (2.4-3.5); GLUCOSE FASTING 94 mg/dL (65-100); HDL 58 mg/dl (40-60); LDL 75 mg/dl (0-130); OSMOLALITY SERUM 280 MOSM/KG (275-295); POTASSIUM 4.43 mEq/L (3.5-5.1); SODIUM 139 mmol/L (136-145); T4 FREE 1.09 NG/ML (0.76-1.46); TRIGLYCERIDES 62 mg/dL (0-150); VLDL 12 (0-39)
[2023-04-07 10:08] LABS: C-REACTIVE PROTEIN < 0.29 MG/DL (0.00-0.29)
== END | disposition home or self-care (01) ==
LOC: LAB 08:21
PROVIDERS: ATTEND Specialist
DX: I50.9 Heart failure, unspecified (principal); Z74.9 Problem related to care provider dependency, unspecified

== ENCOUNTER 2023-04-29 09:45 | Outpatient (CLI) | payer OTHER | END 2023-04-29 09:48 | disposition home or self-care (01) | LOC: TOM 09:45 | DX: N40.1 Benign prostatic hyperplasia with lower urinary tract symptoms (principal) ==

== ENCOUNTER → 2023-05-14 06:34 | Outpatient (CLI) | payer OTHER ==
[2023-05-14 07:27] LABS: PH,URINE 6.5 (5.0-8.0); URINE APPEARANCE Clear; URINE BILIRRUBIN Negative (NEGATIVE); URINE BLOOD Negative; URINE COLOR Yellow; URINE GLUCOSE Negative (NEGATIVE); URINE LEUKOCYTE Large; URINE NITRATE Negative; URINE PROTEIN Trace (NEGATIVE)
[2023-05-14 07:30] LABS: URINE RBC 3.7 uL (0.0-20.8); URINE WBC 833.4 uL (0.0-23.2)
[2023-05-14 07:37] LABS: URINE BACTERIA > 9821.5 uL (0.0-1933); URINE EPITHELIAL CELLS 0.4 uL (0.0-38.8)
[2023-05-14 07:59] LABS: HEMATOCRIT 39.8 % (39.0-48.0); HEMOGLOBIN 13.1 g/dL (13-16.00); MEAN CELL VOLUME 83.2 fL (80.0-100.00); MEAN CORPUSCULAR HEMOGLOBIN 27.3 pg (27.00-32.0); MEAN CORPUSCULAR HGB CONC 32.8 g/dl (32.0-36.0); PLATELET COUNT 251 K/uL (150-450); RED BLOOD COUNT 4.78 M/uL (4.00-6.00); RED CELL DISTRIBUTION WIDTH 16.7 % (11.5-14.5)
[2023-05-14 08:22] LABS: ALBUMIN 3.6 gm/dL (3.4-5.0); BILIRUBIN TOTAL 0.75 mg/dL (0.3-1.2); CALCIUM 8.8 mg/dL (8.5-10.1); CREATININE SERUM 1.44 mg/dL (0.70-1.30); GFR 47.2; GLOBULINA 3.6 G/DL (2.4-3.5); POTASSIUM 4.87 mEq/L (3.5-5.1); TOTAL PROTEIN 7.2 gm/dL (6.4-8.2)
[2023-05-14 08:27] LABS: INR 1.09; PARTIAL THROMBOPLASTIN TIME 29.1 SECONDS (22.0-34.0); PROTHROMBIN TIME 11.4 SECONDS (9.0-11.5)
== END | disposition home or self-care (01) ==
LOC: LAB 06:34
PROVIDERS: ATTEND Specialist
DX: J45.998 Other asthma (principal); N39.9 Disorder of urinary system, unspecified; D64.9 Anemia, unspecified; E11.65 Type 2 diabetes mellitus with hyperglycemia; D68.8 Other specified coagulation defects; N39.0 Urinary tract infection, site not specified

== ENCOUNTER → 2023-05-28 10:27 | Outpatient (CLI) | payer OTHER ==
[2023-05-28 11:08] LABS: URINE APPEARANCE Clear; URINE BILIRRUBIN Negative (NEGATIVE); URINE BLOOD Negative; URINE COLOR Dark Yellow; URINE GLUCOSE Negative (NEGATIVE); URINE LEUKOCYTE Moderate; URINE NITRATE Negative; URINE PROTEIN 30 (NEGATIVE)
[2023-05-28 11:11] LABS: URINE BACTERIA 454.8 uL (0.0-1933); URINE EPITHELIAL CELLS 9.5 uL (0.0-38.8); URINE RBC 2.5 uL (0.0-20.8)
== END | disposition home or self-care (01) ==
LOC: LAB 10:27
PROVIDERS: ATTEND Specialist
DX: N39.0 Urinary tract infection, site not specified (principal)

== ENCOUNTER 2023-07-09 08:30 | Outpatient (CLI) | payer OTHER | END 2023-07-09 14:23 | disposition home or self-care (01) | LOC: LAB 08:30 | PROVIDERS: ATTEND Specialist | DX: N39.0 Urinary tract infection, site not specified (principal) ==

== ENCOUNTER 2023-10-03 08:18 | Outpatient (CLI) | payer OTHER | END 2023-10-03 08:22 | disposition home or self-care (01) | LOC: LAB 08:18 | PROVIDERS: ATTEND Specialist | DX: N39.0 Urinary tract infection, site not specified (principal) ==

== ENCOUNTER → 2023-11-04 08:29 | Outpatient (CLI) | payer OTHER ==
[2023-11-04 09:20] LABS: URINE APPEARANCE Cloudy; URINE BILIRRUBIN Negative (NEGATIVE); URINE COLOR Yellow; URINE GLUCOSE Negative (NEGATIVE); URINE KETONE Negative (NEGATIVE); URINE LEUKOCYTE Large; URINE NITRATE Negative; URINE PROTEIN 30 (NEGATIVE)
[2023-11-04 09:22] LABS: URINE RBC 20.6 uL (0.0-20.8)
[2023-11-04 09:27] LABS: URINE BACTERIA > 9821.5 uL (0.0-1933); URINE BLOOD TRACE; URINE EPITHELIAL CELLS 1.2 uL (0.0-38.8)
[2023-11-04 09:48] LABS: PROSTATIC SPECIFIC ANTIGEN 1.52 NG/ML (0.010-4.00)
[2023-11-04 09:53] LABS: C-REACTIVE PROTEIN 0.71 MG/DL (0.00-0.29)
== END | disposition home or self-care (01) ==
LOC: LAB 08:29
PROVIDERS: ATTEND Specialist
DX: N39.9 Disorder of urinary system, unspecified (principal); D40.0 Neoplasm of uncertain behavior of prostate; J45.998 Other asthma; N39.0 Urinary tract infection, site not specified

== ENCOUNTER 2023-11-04 08:48 | Outpatient (CLI) | payer OTHER | END 2023-11-04 08:53 | disposition home or self-care (01) | LOC: SONOGRAMA 08:48 | PROVIDERS: ATTEND Specialist | DX: N20.0 Calculus of kidney (principal) ==

== ENCOUNTER 2023-11-13 12:11 | Outpatient (CLI) | payer OTHER | END 2023-11-13 12:13 | disposition home or self-care (01) | LOC: SONOGRAMA 12:11 | PROVIDERS: ATTEND Specialist | DX: R33.9 Retention of urine, unspecified (principal) ==

== ENCOUNTER 2023-12-01 17:40 | Inpatient (IN) | payer OTHER ==
[~2023-12-01] VITALS: Ht 170.2 cm; Wt 81.6 kg
[2023-12-01 18:28] VITALS: BP 116/70; O2SAT 94
[2023-12-01] MEDS ORDERED: CEFTRIAXONE SODIUM 2,000 MG VIAL IV STA (18:33)
[2023-12-01] MEDS ORDERED: SODIUM CHLORIDE 0.45 % 1,000 ML IV SCH (19:00)
[2023-12-01 20:00] LABS: HEMATOCRIT 40.6 % (39.0-48.0); HEMOGLOBIN 13.2 g/dL (13-16.00); MEAN CELL VOLUME 84.7 fL (80.0-100.00); MEAN CORPUSCULAR HEMOGLOBIN 27.5 pg (27.00-32.0); MEAN CORPUSCULAR HGB CONC 32.5 g/dl (32.0-36.0); PLATELET COUNT 188 K/uL (150-450); RED CELL DISTRIBUTION WIDTH 20.6 % (11.5-14.5)
[2023-12-01 20:18] LABS: INR 1.14; PARTIAL THROMBOPLASTIN TIME 30.3 SECONDS (22.0-34.0); PROTHROMBIN TIME 12.3 SECONDS (9.0-11.5)
[2023-12-01 20:25] LABS: ALBUMIN 3.6 gm/dL (3.4-5.0); BILIRUBIN TOTAL 0.59 mg/dL (0.3-1.2); C-REACTIVE PROTEIN 0.32 MG/DL (0.00-0.29); CALCIUM 9.2 mg/dL (8.5-10.1); CREATININE SERUM 1.54 mg/dL (0.70-1.30); GFR 43.57; GLOBULINA 3.6 G/DL (2.4-3.5); TOTAL PROTEIN 7.2 gm/dL (6.4-8.2)
[2023-12-01 20:40] LABS: ERYTHROCYTE SEDIMENTATION RATE 18 mm/hr
[2023-12-02 01:55] VITALS: BP 115/62
[2023-12-02 05:34] VITALS: O2SAT 96
[2023-12-02 08:00] VITALS: BP 119/64
[2023-12-02] MEDS ORDERED: CANDESARTAN CILEXETIL 8 MG TAB PO SCH (09:00)
[2023-12-02] MEDS ORDERED: ATORVASTATIN CALCIUM 20 MG TABLET PO SCH (09:00)
[2023-12-02] MEDS ORDERED: CEFTRIAXONE SODIUM 2,000 MG VIAL IV SCH (09:00)
[2023-12-02] MEDS ORDERED: AMIODARONE HCL 200 MG TABLET PO SCH (09:00)
[2023-12-02] MEDS ORDERED: TAMSULOSIN HCL 0.4 MG CAP PO SCH (09:00)
[2023-12-02] MEDS ORDERED: FUROsemide 20 MG TABLET PO SCH (09:00)
[2023-12-02] MEDS ORDERED: PATIENTS OWN MEDICATION (MEDICAMENTO EN PISO) PO SCH (09:00)
[2023-12-02] MEDS ORDERED: SPIRONOLACTONE 25 MG TABLET PO SCH (09:00)
[2023-12-02] MEDS ORDERED: RIVAROXABAN 20 MG TABLET PO SCH (09:00)
[2023-12-02] MEDS ORDERED: METOPROLOL SUCCINATE 100 MG TAB.SR.24H PO SCH (09:00)
[2023-12-02 13:44] LABS: PH,URINE 5.5 (5.0-8.0); URINE APPEARANCE Clear; URINE BILIRRUBIN Negative (NEGATIVE); URINE BLOOD Negative; URINE COLOR Yellow; URINE GLUCOSE Negative (NEGATIVE); URINE KETONE Negative (NEGATIVE); URINE LEUKOCYTE Moderate; URINE NITRATE Negative; URINE PROTEIN Negative (NEGATIVE); URINE UROBILINOGEN 0.2 E.U./dl
[2023-12-02 13:47] LABS: URINE BACTERIA 22.6 uL (0.0-1933); URINE WBC 152.7 uL (0.0-23.2)
[2023-12-02 13:57] LABS: URINE CAST 0.15 uL (0.0-1.40)
[2023-12-02 18:01] VITALS: BP 116/60
[2023-12-03 01:34] VITALS: BP 114/63
[2023-12-03 05:22] LABS: HEMATOCRIT 36.3 % (39.0-48.0); HEMOGLOBIN 12.3 g/dL (13-16.00); MEAN CELL VOLUME 83.7 fL (80.0-100.00); MEAN CORPUSCULAR HEMOGLOBIN 28.3 pg (27.00-32.0); MEAN CORPUSCULAR HGB CONC 33.8 g/dl (32.0-36.0); PLATELET COUNT 168 K/uL (150-450); RED BLOOD COUNT 4.34 M/uL (4.00-6.00); RED CELL DISTRIBUTION WIDTH 19.8 % (11.5-14.5)
[2023-12-03 05:43] LABS: ALBUMIN 3.1 gm/dL (3.4-5.0); BILIRUBIN TOTAL 0.42 mg/dL (0.3-1.2); CALCIUM 8.1 mg/dL (8.5-10.1); CREATININE SERUM 1.57 mg/dL (0.70-1.30); GFR 42.61; GLOBULINA 3.4 G/DL (2.4-3.5); PHOSPHOROUS 3.4 mg/dL (2.5-4.9); POTASSIUM 4.19 mEq/L (3.5-5.1); PROSTATIC SPECIFIC ANTIGEN 1.63 NG/ML (0.010-4.00); TOTAL PROTEIN 6.5 gm/dL (6.4-8.2)
[2023-12-03 05:44] LABS: C-REACTIVE PROTEIN 0.37 MG/DL (0.00-0.29)
[2023-12-03 08:59] VITALS: BP 127/68
[2023-12-03] MEDS ORDERED: LACTOBACILLUS ACIDOPHILUS 1 CAP CAP PO SCH (09:00)
[2023-12-03 17:15] VITALS: BP 109/63
== END 2023-12-03 17:49 | disposition home or self-care (01) | DRG 309 ==
LOC: MEDI 17:40
PROVIDERS: Internal Medicine Infectious Disease; ADMIT Specialist; ATTEND Specialist
PROC: 4A12X4Z Monitoring of Cardiac Electrical Activity, External Approach (ICD-10-PCS; principal; 2023-12-01)
DX: I48.91 Unspecified atrial fibrillation (principal); N39.0 Urinary tract infection, site not specified; I50.9 Heart failure, unspecified; I11.0 Hypertensive heart disease with heart failure

== ENCOUNTER 2023-12-18 07:55 | Outpatient (CLI) | payer OTHER ==
[2023-12-18 08:42] LABS: PH,URINE 5.5 (5.0-8.0); URINE APPEARANCE Clear; URINE BILIRRUBIN Negative (NEGATIVE); URINE BLOOD Negative; URINE COLOR Yellow; URINE GLUCOSE Negative (NEGATIVE); URINE KETONE Negative (NEGATIVE); URINE LEUKOCYTE Small; URINE NITRATE Negative; URINE PROTEIN Trace (NEGATIVE); URINE UROBILINOGEN 0.2 E.U./dl
[2023-12-18 08:46] LABS: URINE BACTERIA 28.9 uL (0.0-1933); URINE EPITHELIAL CELLS 7.2 uL (0.0-38.8); URINE RBC 5.1 uL (0.0-20.8); URINE WBC 45.2 uL (0.0-23.2)
[2023-12-18 08:46] LABS: HEMATOCRIT 38.8 % (39.0-48.0); HEMOGLOBIN 13.1 g/dL (13-16.00); MEAN CORPUSCULAR HEMOGLOBIN 28.1 pg (27.00-32.0); MEAN CORPUSCULAR HGB CONC 33.8 g/dl (32.0-36.0); PLATELET COUNT 221 K/uL (150-450); RED BLOOD COUNT 4.67 M/uL (4.00-6.00); RED CELL DISTRIBUTION WIDTH 18.6 % (11.5-14.5)
[2023-12-18 09:28] LABS: CREATININE SERUM 1.78 mg/dL (0.70-1.30); GFR 36.87; POTASSIUM 4.41 mEq/L (3.5-5.1)
== END 2023-12-18 07:57 | disposition home or self-care (01) ==
LOC: LAB 07:55
PROVIDERS: ATTEND Specialist
DX: N39.0 Urinary tract infection, site not specified (principal); E11.21 Type 2 diabetes mellitus with diabetic nephropathy

== ENCOUNTER 2024-02-16 08:38 | Outpatient (CLI) | payer OTHER ==
[2024-02-16 09:19] LABS: HEMATOCRIT 39.6 % (39.0-48.0); HEMOGLOBIN 13.5 g/dL (13-16.00); MEAN CELL VOLUME 86.9 fL (80.0-100.00); MEAN CORPUSCULAR HEMOGLOBIN 29.7 pg (27.00-32.0); MEAN CORPUSCULAR HGB CONC 34.2 g/dl (32.0-36.0); PLATELET COUNT 195 K/uL (150-450); RED BLOOD COUNT 4.55 M/uL (4.00-6.00); RED CELL DISTRIBUTION WIDTH 16.9 % (11.5-14.5)
[2024-02-16 09:48] LABS: PH,URINE 5.5 (5.0-8.0); URINE APPEARANCE Clear; URINE BILIRRUBIN Negative (NEGATIVE); URINE BLOOD Small; URINE COLOR Yellow; URINE GLUCOSE Negative (NEGATIVE); URINE KETONE Negative (NEGATIVE); URINE LEUKOCYTE Large; URINE NITRATE Negative; URINE PROTEIN 30 (NEGATIVE)
[2024-02-16 09:54] LABS: INR 1.14; PROTHROMBIN TIME 12.3 SECONDS (9.0-11.5)
[2024-02-16 10:03] LABS: URINE BACTERIA > 9821.5 uL (0.0-1933); URINE CAST 0.45 uL (0.0-1.40); URINE EPITHELIAL CELLS 1.5 uL (0.0-38.8); URINE RBC 22.7 uL (0.0-20.8); URINE WBC 1550.1 uL (0.0-23.2)
[2024-02-16 10:30] LABS: ALBUMIN 3.5 gm/dL (3.4-5.0); BILIRUBIN TOTAL 0.78 mg/dL (0.3-1.2); CALCIUM 8.9 mg/dL (8.5-10.1); CREATININE SERUM 1.61 mg/dL (0.70-1.30); GFR 41.39; GLOBULINA 3.6 G/DL (2.4-3.5); POTASSIUM 4.49 mEq/L (3.5-5.1); TOTAL PROTEIN 7.1 gm/dL (6.4-8.2)
== END 2024-02-16 08:39 | disposition home or self-care (01) ==
LOC: LAB 08:38
PROVIDERS: ATTEND Specialist
DX: N39.9 Disorder of urinary system, unspecified (principal); D64.9 Anemia, unspecified; E11.65 Type 2 diabetes mellitus with hyperglycemia; D68.8 Other specified coagulation defects; N39.0 Urinary tract infection, site not specified

== ENCOUNTER 2024-05-22 07:06 | Emergency (ER) | payer OTHER ==
[~2024-05-22] VITALS: Ht 170.2 cm; Wt 81.6 kg
== END 2024-05-22 13:03 ==
LOC: ER 07:08
DX: S09.8XXA Other specified injuries of head, initial encounter (principal); S29.8XXA Other specified injuries of thorax, initial encounter; W19.XXXA Unspecified fall, initial encounter; Y93.89 Activity, other specified; Y92.89 Other specified places as the place of occurrence of the external cause; Y99.8 Other external cause status; R51.9 Headache, unspecified; E11.9 Type 2 diabetes mellitus without complications; I10 Essential (primary) hypertension

== ENCOUNTER 2024-06-10 08:19 | Outpatient (CLI) | payer OTHER ==
[2024-06-10 09:14] LABS: HEMATOCRIT 42.2 % (39.0-48.0); HEMOGLOBIN 13.7 g/dL (13-16.00); MEAN CELL VOLUME 86.7 fL (80.0-100.00); MEAN CORPUSCULAR HEMOGLOBIN 28.1 pg (27.00-32.0); MEAN CORPUSCULAR HGB CONC 32.4 g/dl (32.0-36.0); PLATELET COUNT 198 K/uL (150-450); RED BLOOD COUNT 4.86 M/uL (4.00-6.00); RED CELL DISTRIBUTION WIDTH 15.5 % (11.5-14.5)
[2024-06-10 10:34] LABS: ALBUMIN 3.8 gm/dL (3.4-5.0); BILIRUBIN TOTAL 0.67 mg/dL (0.3-1.2); CALCIUM 9.3 mg/dL (8.5-10.1); CHOL HDL RATIO 2.9 (0-5.0); CREATININE SERUM 1.48 mg/dL (0.70-1.30); GFR 45.62; GLOBULINA 3.7 G/DL (2.4-3.5); POTASSIUM 4.7 mEq/L (3.5-5.1); TOTAL PROTEIN 7.5 gm/dL (6.4-8.2); TSH 2.86 uIU/mL (0.358-3.74)
== END 2024-06-10 08:24 | disposition home or self-care (01) ==
LOC: LAB 08:19
PROVIDERS: ATTEND Specialist
DX: E03.9 Hypothyroidism, unspecified (principal); E11.21 Type 2 diabetes mellitus with diabetic nephropathy; E78.2 Mixed hyperlipidemia; E11.65 Type 2 diabetes mellitus with hyperglycemia; D64.9 Anemia, unspecified; N39.0 Urinary tract infection, site not specified

== ENCOUNTER 2024-11-09 09:29 | Outpatient (CLI) | payer OTHER ==
[2024-11-09 10:40] LABS: URINE APPEARANCE Cloudy; URINE BILIRRUBIN Negative (NEGATIVE); URINE COLOR Yellow; URINE KETONE Trace (NEGATIVE); URINE LEUKOCYTE Large; URINE NITRATE Negative; URINE PROTEIN 30 (NEGATIVE); URINE UROBILINOGEN 1.0 E.U./dl
[2024-11-09 10:41] LABS: URINE EPITHELIAL CELLS 1.9 uL (0.0-38.8); URINE RBC 8.0 uL (0.0-20.8); URINE WBC 2207.2 uL (0.0-23.2)
[2024-11-09 10:43] LABS: URINE BACTERIA > 9821.5 uL (0.0-1933); URINE BLOOD TRACE; URINE CAST 0.58 uL (0.0-1.40); URINE GLUCOSE 500 MG/DL (NEGATIVE)
[2024-11-09 10:47] LABS: BASO % 0.5 % (0.1-1.2); EOS # 0.09 (0.04-0.54); EOS % 1.6 % (0.7-7.0); LYMPH # 0.86 (1.18-3.74); LYMPH % 15.6 % (19.3-53.1); MEAN PLATELET VOLUME 9.60 fl (9.4-12.4); MONO # 0.54 (0.24-0.82); MONO % 9.8 % (4.7-12.5); NEUT # 3.96 (1.56-6.13); NEUT % 72.1 % (34.0-71.1); RED CELL DISTRIBUTION WIDTH 14.9 % (11.6-14.4)
[2024-11-09 11:04] LABS: CREATININE URINE RANDOM 128.0 MG/DL (30-125)
[2024-11-09 11:32] LABS: INR 1.27
[2024-11-09 11:38] LABS: ALT/SGPT 21.0 U/L (12-78); AST/SGOT 22.0 U/L (15-37); BILIRUBIN TOTAL 0.82 mg/dL (0.3-1.2); BUN CREA RATIO 14.0 (7.0-25.0); CHOL HDL RATIO 2.0 (0-5.0); CREATININE SERUM 1.4 mg/dL (0.70-1.30); FREE TRIODOTIRONINE 2.46 pg/ml (2.18-3.98); GFR 48.52; GLOBULINA 3.9 G/DL (2.4-3.5); GLUCOSE FASTING 87.0 mg/dL (65-100); HDL 57.0 mg/dl (40-60); LDL 48.0 mg/dl (0-130); OSMOLALITY SERUM 288.0 MOSM/KG (275-295); PROSTATIC SPECIFIC ANTIGEN 1.8 NG/ML (0.010-4.00); T4 FREE 1.07 NG/ML (0.76-1.46); TSH 1.98 uIU/mL (0.358-3.74); VLDL 10.0 (0-39)
== END 2024-11-09 09:40 | disposition home or self-care (01) ==
LOC: LAB 09:29
PROVIDERS: ATTEND Specialist
DX: E03.9 Hypothyroidism, unspecified (principal); E11.21 Type 2 diabetes mellitus with diabetic nephropathy; N39.9 Disorder of urinary system, unspecified; D40.0 Neoplasm of uncertain behavior of prostate; E78.2 Mixed hyperlipidemia; E11.65 Type 2 diabetes mellitus with hyperglycemia; D64.9 Anemia, unspecified; M62.82 Rhabdomyolysis; D68.8 Other specified coagulation defects

== ENCOUNTER 2024-12-03 07:35 | Outpatient (CLI) | payer OTHER | END 2024-12-03 07:36 | disposition home or self-care (01) | LOC: NUCLEAR 07:35 | PROVIDERS: ATTEND Internal Medicine | DX: I20.9 Angina pectoris, unspecified (principal) | CPT/HCPCS: 78452; 93017; A9500; J0153 ==

== ENCOUNTER → 2025-01-21 08:34 | Outpatient (CLI) | payer OTHER ==
[2025-01-21 09:23] LABS: BASO % 0.5 % (0.1-1.2); EOS # 0.14 (0.04-0.54); EOS % 2.3 % (0.7-7.0); LYMPH # 1.10 (1.18-3.74); LYMPH % 18.0 % (19.3-53.1); MEAN PLATELET VOLUME 9.60 fl (9.4-12.4); MONO # 0.64 (0.24-0.82); MONO % 10.5 % (4.7-12.5); NEUT # 4.19 (1.56-6.13); NEUT % 68.4 % (34.0-71.1); RED CELL DISTRIBUTION WIDTH 14.6 % (11.6-14.4)
[2025-01-21 09:47] LABS: URINE APPEARANCE Clear; URINE BILIRRUBIN Negative (NEGATIVE); URINE BLOOD Negative; URINE COLOR Yellow; URINE KETONE Negative (NEGATIVE); URINE LEUKOCYTE Moderate; URINE NITRATE Negative; URINE PROTEIN 30 (NEGATIVE); URINE UROBILINOGEN 0.2 E.U./dl
[2025-01-21 09:55] LABS: URINE EPITHELIAL CELLS 2.4 uL (0.0-38.8); URINE RBC 5.2 uL (0.0-20.8); URINE WBC 526.3 uL (0.0-23.2)
[2025-01-21 09:57] LABS: INR 1.19
[2025-01-21 10:05] LABS: URINE BACTERIA > 9821.5 uL (0.0-1933); URINE CAST 0.00 uL (0.0-1.40); URINE GLUCOSE 100 MG/DL (NEGATIVE)
[2025-01-21 10:29] LABS: CREATININE URINE RANDOM 117.0 MG/DL (30-125)
[2025-01-21 10:52] LABS: ALT/SGPT 27.0 U/L (12-78); AST/SGOT 31.0 U/L (15-37); BILIRUBIN TOTAL 0.74 mg/dL (0.3-1.2); BUN CREA RATIO 18.0 (7.0-25.0); CHOL HDL RATIO 2.0 (0-5.0); CREATININE SERUM 1.48 mg/dL (0.70-1.30); FREE TRIODOTIRONINE 2.53 pg/ml (2.18-3.98); GFR 45.5; GLOBULINA 3.6 G/DL (2.4-3.5); GLUCOSE FASTING 97.0 mg/dL (65-100); HDL 63.0 mg/dl (40-60); LDL 49.0 mg/dl (0-130); OSMOLALITY SERUM 290.0 MOSM/KG (275-295); T4 FREE 0.96 NG/ML (0.76-1.46); TSH 1.71 uIU/mL (0.358-3.74); VLDL 16.0 (0-39)
== END | disposition home or self-care (01) ==
LOC: LAB 08:34
PROVIDERS: ATTEND Specialist
DX: E03.9 Hypothyroidism, unspecified (principal); I50.9 Heart failure, unspecified; E11.21 Type 2 diabetes mellitus with diabetic nephropathy; N39.0 Urinary tract infection, site not specified; E78.2 Mixed hyperlipidemia; E11.65 Type 2 diabetes mellitus with hyperglycemia; D64.9 Anemia, unspecified; D68.8 Other specified coagulation defects